=== PATIENT | female | born 1965 | race Caucasian/White ===

== ENCOUNTER 2017-01-06 19:30 | Emergency (ER) | payer MEDICAID ==
[~2017-01-06] VITALS: Ht 149.9 cm; Wt 91.0 kg
[2017-01-06] MEDS ORDERED: KETOROLAC 60MG/2ML VIAL IM ONE (23:00)
[2017-01-07 00:14] VITALS: BP 131/74
== END 2017-01-07 01:24 | disposition home or self-care (01) ==
LOC: ER 19:30
DX: S39.012A Strain of muscle, fascia and tendon of lower back, initial encounter (principal); R51 Headache; Y04.0XXA Assault by unarmed brawl or fight, initial encounter; Y93.01 Activity, walking, marching and hiking; Y92.410 Unspecified street and highway as the place of occurrence of the external cause; Y99.8 Other external cause status
CPT/HCPCS: 72100; 96372; 99284; J1885